=== PATIENT | female | born 1960 | race Caucasian/White ===

== ENCOUNTER 2019-10-16 15:59 | Emergency (ER) | payer BC ==
[2019-10-16 16:15] VITALS: BP 133/77
--- NOTE | 2019-10-16 16:41 | UC ---
Eye Complaint HPI - HPI Summary HPI Summary: She has redness and irritation to right eye for several days. She has watery discharge. Started in her upper mid and she has been treating it with warm compresses and some leftover erythromycin ointment for about 24 hours. She is concerned because now lower lid seems to be getting somewhat swollen. - History of Current Complaint Chief Complaint: UCEye Stated Complaint: EYE COMPLAINT Time Seen by Provider: 10/16/19 16:22 Hx Obtained From: Patient Hx Last Menstrual Period: post menopausal Onset/Duration: Gradual Onset Timing: Constant Severity Initially: Mild Severity Currently: Mild Pain Intensity: 2 Location of Injury: Conjunctiva, Eye Lid (lower), Eye Lid (upper) Aggravating Factor(s): Nothing Alleviating Factor(s): Nothing Associated Signs And Symptoms: Positive: Drainage (Clear), Swelling - Allergies/Home Medications Allergies/Adverse Reactions: Allergies Allergy/AdvReac Type Severity Reaction Status Date / Time MS Gluten Meal [Gluten Meal] AdvReac GI Upset Verified 10/16/19 16:15 MS Yeast [Yeast] AdvReac GI Upset Verified 10/16/19 16:15 Soy AdvReac GI Upset Uncoded 10/16/19 16:17 Home Medications: Home Medications Erythromycin TOPICAL GEL* [Erythromycin OPTH OINT*] 10/16/19 [History] PMH/Surg Hx/FS Hx/Imm Hx Previously Healthy: Yes - Surgical History Surgical History: Yes Surgery Procedure, Year, and Place: 1982 screws R ankle, left knee arthroscopy, hernia repair - Social History Alcohol Use: Occasionally Substance Use Type: None Smoking Status (MU): Never Smoked Tobacco Review of Systems All Other Systems Reviewed And Are Negative: Yes Eyes: Positive: Drainage, Eye Redness Physical Exam - Summary Physical Exam Summary: She is nontoxic in appearance with stable vital signs Triage Information Reviewed: Yes Appearance: Well-Appearing Vital Signs: Initial Vital Signs Temp 97.7 F 10/16/19 16:08 Pulse 88 10/16/19 16:08 Resp 16 10/16/19 16:08 BP 133/77 10/16/19 16:08 Pulse Ox 100 10/16/19 16:08 Eyes: Positive: Conjunctiva Inflamed, Other: - Her upper eyelid is erythematous and swollen and a little indurated area of a meibonian gland. Her conjunctivae are mildly injected. Eye Complaint Course/Dx - Course Course Of Treatment: I think she is doing the right things but I'm going to switch her to azithromycin solution in addition. - Differential Dx/Diagnosis Provider Diagnosis: [facility] Discharge ED - Sign-Out/Discharge Documenting (check all that apply): Patient Departure All imaging exams completed and their final reports reviewed: No Studies - Discharge Plan Condition: Stable Disposition: HOME Patient Education Materials: Romaine (ED) Referrals: Michelle Lynn MD [Primary Care Provider] - - Billing Disposition and Condition Condition: STABLE Disposition: Home
== END 2019-10-16 16:58 | disposition home or self-care (01) ==
LOC: UCEAST 15:59
DX: H00.011 Hordeolum externum right upper eyelid (principal); Z91.018 Allergy to other foods; Z91.09 Other allergy status, other than to drugs and biological substances
CPT/HCPCS: 99202; G0463